=== PATIENT | female | born 1975 | race Caucasian/White ===

== ENCOUNTER 2018-01-09 15:20 | Emergency (ER) | payer OTHER ==
[~2018-01-09] VITALS: Ht 162.6 cm; Wt 97.5 kg
[~2018-01-09 15:20] MED LIST: ESZO3TAB10 PO; NORCO5; VENL150C53 PO
[2018-01-09 15:38] VITALS: BP_SYST 124
[2018-01-09] MEDS ORDERED: HYDROcodone/ACETAMIN 5-325 MG TAB (NORCO/ VICODIN) PO ONE (16:00)
[2018-01-09] MEDS ORDERED: HYDROcodone/ACETAMIN 5-325 MG TAB (NORCO/ VICODIN) ONE (16:06)
[2018-01-09 16:41] VITALS: BP_SYST 124
== END 2018-01-09 16:41 | disposition home or self-care (01) ==
LOC: SED 15:20
DX: S83.92XA Sprain of unspecified site of left knee, initial encounter (principal); S00.12XA Contusion of left eyelid and periocular area, initial encounter; Z88.0 Allergy status to penicillin; W19.XXXA Unspecified fall, initial encounter; Y93.89 Activity, other specified; Y92.89 Other specified places as the place of occurrence of the external cause; Y99.8 Other external cause status
CPT/HCPCS: 99283